=== PATIENT | male | born 1950 | race Caucasian/White ===

== ENCOUNTER 2016-11-29 23:23 | Emergency (ER) | payer MEDICARE, OTHER ==
[~2016-11-29 23:23] MED LIST: ASPI81CH49 PO; ATEN-60 PO; B-COCAP4 PO; CLOP75TA28 PO; FURO40TA PO; HYDR7.5T OR; POTA20TA53 PO; SIMV-8 PO
[2016-11-30 01:50] VITALS: BP 137/86
== END 2016-11-30 02:51 | disposition home or self-care (01) ==
LOC: EDBD 23:23 → ER 23:27
DX: S09.90XA Unspecified injury of head, initial encounter (principal); F17.210 Nicotine dependence, cigarettes, uncomplicated; I20.9 Angina pectoris, unspecified; J44.9 Chronic obstructive pulmonary disease, unspecified; I25.10 Atherosclerotic heart disease of native coronary artery without angina pectoris; I25.2 Old myocardial infarction; Z89.512 Acquired absence of left leg below knee; Z95.1 Presence of aortocoronary bypass graft; Z88.8 Allergy status to other drugs, medicaments and biological substances; X58.XXXA Exposure to other specified factors, initial encounter; Y93.89 Activity, other specified; Y99.8 Other external cause status; Y92.89 Other specified places as the place of occurrence of the external cause
CPT/HCPCS: 70450

== ENCOUNTER 2018-09-05 12:24 | Emergency (ER) | payer MEDICARE, OTHER ==
[~2018-09-05] VITALS: Ht 175.3 cm; Wt 54.4 kg
[2018-09-05 12:40] VITALS: BP 105/70
== END 2018-09-05 18:13 | disposition left against medical advice (07) ==
LOC: EDSEX 12:24 → ER 12:24 → EDBD 12:24 → ER 18:13
DX: F10.10 Alcohol abuse, uncomplicated (principal); Z89.512 Acquired absence of left leg below knee; Z89.511 Acquired absence of right leg below knee; Z53.21 Procedure and treatment not carried out due to patient leaving prior to being seen by health care provider